=== PATIENT | female | born 1985 | race Hispanic/Latino ===

== ENCOUNTER → 2019-11-27 | Outpatient (CLI) | payer OTHER ==
--- NOTE | 2019-11-27 11:33 | REPVR ---
PROCEDURE INFORMATION: Exam: CT Maxillofacial Without Contrast, Sinus Exam date and time: 11/27/2019 10:44 AM Age: 34 years old Clinical indication: Sinusitis; Chronic; Additional info: Chronic pansinusitis TECHNIQUE: Imaging protocol: CT Maxillofacial without contrast. Focus on the sinuses. Radiation optimization: All CT scans at this facility use at least one of these dose optimization techniques: automated exposure control; mA and/or kV adjustment per patient size (includes targeted exams where dose is matched to clinical indication); or iterative reconstruction. COMPARISON: No relevant prior studies available. FINDINGS: Sinuses: No significant mucoperiosteal disease or fluid in the paranasal sinuses. Orbits: Unremarkable appearance of the globes, optic nerves, and extraocular muscles. Nasal cavity/Septum: Patency of the ostiomeatal complexes. Mild leftward deviation of the nasal septum and small septal spur. Lymph nodes: Subcentimeter lymph nodes. Soft tissues: No significant facial soft tissue swelling. Bones/joints: No acute osseous pathology in the visualized facial bones. IMPRESSION: No acute sinusitis. Electronically signed by: Dion Mcdonald On 11/27/2019 11:33:11 AM
== END ==
LOC: M RAD 10:38
PROVIDERS: ATTEND Otolaryngology
DX: J32.4 Chronic pansinusitis (principal)